=== PATIENT | male | born 1990 | race Hispanic/Latino ===

== ENCOUNTER 2018-01-13 16:18 | Inpatient (IN) | payer SELFPAY ==
[2018-01-13] MEDS ORDERED: Lidocaine 1% w/Epinephrine 1:100K 20 ML VIAL ONE (17:19)
[2018-01-13] MEDS ORDERED: Multivitamins, Adult 10 ML, Thiamine HCl 100 MG, Folic Acid 1 MG in Dextrose 5 %-0.45 %... IV SCH (17:45)
[2018-01-13] MEDS ORDERED: Lorazepam 2 MG/ML VIAL ONE (18:03)
[2018-01-13 18:11] LABS: #Basophils 0.1 thou/uL (0.0-0.2); #Eosinphils 0.1 thou/uL (0.0-0.7); #Lymphocytes 1.7 thou/uL (1.20-3.40); #Monocytes 0.6 thou/uL (0.11-0.59); #Neutrophils 8.4 thou/uL (1.40-6.50); %Basophils 0.6 % (0.0-1.0); %Eosinophils 0.9 % (0.0-10.0); %Lymphocytes 15.6 % (21.0-51.0); %Monocytes 5.5 % (0.0-10.0); %Neutrophils 77.4 % (42.0-75.0); Hemoglobin 11.9 g/dL (14.0-18.0); Mean Corpuscular HGB CONC 33.8 g/dL (32.0-36.0); Mean Corpuscular Hemoglobin 35.4 pg (27.0-31.0); Mean Platelet Volume 8.9 fL (7.4-10.4); Platelet Count 105 thou/uL (130-400); RBC Distribution Width 15.4 % (11.5-14.5); Red Blood Cell (RBC) Count 3.37 mill/uL (4.70-6.10); White Blood Cell (WBC) Count 10.8 thou/uL (4.8-10.8)
[2018-01-13 18:15] LABS: INR-International Normal Ratio 1.6; PTT 46.8 SEC (22.9-36.1); Prothrombin Time 19.2 SEC (12.0-14.7)
[2018-01-13 18:32] LABS: Acetaminophen Less than 6.0 mcg/mL (10.0-30.0); Alcohol Less than 10 mg/dL (Less than 10); Salicylate Less than 8.0 mg/dL (15.0-30.0)
[2018-01-13 18:36] LABS: CKMB 1.6 ng/mL (0-6.6); Troponin I Less than 0.010 ng/mL (< 0.028)
[2018-01-13 18:44] LABS: ALT (SGPT) 66 U/L (8-55); AST (SGOT) 203 U/L (5-34); Albumin 3.3 g/dL (3.5-5.0); Alkaline Phosphatase 140 U/L (40-150); Anion Gap 13 mmol/L (10-20); BUN (Urea Nitrogen) 8 mg/dL (8.9-20.6); Bilirubin, Total 12.2 mg/dL (0.2-1.2); Calc. Creatinine Clearance 0 mL/min (70-130); Calcium 9.6 mg/dL (7.8-10.44); Carbon Dioxide 26 mmol/L (22-29); Chloride 97 mmol/L (98-107); Estimated GFR-MDRD Greater than 90; Globulin 5.3 g/dL (2.4-3.5); Glucose 119 mg/dL (70-105); Lipase 150 U/L (8-78); Potassium 3.8 mmol/L (3.5-5.1); Protein, Total 8.6 g/dL (6.0-8.3); Sodium 132 mmol/L (136-145)
[2018-01-13 19:10] LABS: Bilirubin Large (Negative); Blood, Urine Negative (Negative); Clarity CLOUDY (Clear); Glucose, Urine (Dipstick) Negative (Negative); Leukocyte Moderate (Negative); Nitrite Positive (Negative); Protein, Urine (Dipstick) 30 mg/dL (Neg-Trace); Specific Gravity, Urine 1.023 (1.002-1.036)
[2018-01-13 19:12] LABS: RBC/HPF 0-3 HPF (0-3); Squamous Epithelial 0-3 HPF (0-3)
[2018-01-13 19:15] LABS: Pathc Cast-AUWi Flag 2.57 (0-2.49)
[2018-01-13 19:17] LABS: Bacteria/HPF 1+ HPF (None Seen); Crystals/HPF None Seen HPF (Negative); Hyaline Casts/LPF 0-3 HYALINE CAST LPF (0-3 Hyaline); Manual Microscopic Reviewed? No Path Casts Seen
[2018-01-13 19:30] LABS: Amphetamine Not Detected (NotDetected); Barbiturates Screen Not Detected (NotDetected); Benzodiazepine Screen Detected (NotDetected); Cocaine Metabolite Screen Not Detected (NotDetected); Medtox Control Line Valid? VALID (VALID); Medtox Reader # READER 4; Methadone Not Detected (NotDetected); Methamphetamine Detected (NotDetected); Opiate Screen Not Detected (NotDetected); Oxycodone Screen Not Detected (NotDetected); Phencyclidine (PCP) Not Detected (NotDetected); THC/Cannabinoid Screen Detected (NotDetected); Tricyclic Screen Not Detected (NotDetected)
[2018-01-13] MEDS ORDERED: Magnesium Sulfate 2 GM/100 ML BAG ONE (19:35)
[2018-01-13] MEDS ORDERED: WATER IVPB ONE (19:45)
[2018-01-13] MEDS ORDERED: ACETYLCYSTEINE IVPB ONE (19:45)
[2018-01-13] MEDS ORDERED: DEXTROSE 5% IVPB ONE (19:45)
[2018-01-13] MEDS ORDERED: DEXTROSE 5% IVPB SCH (21:30)
[2018-01-13] MEDS ORDERED: ACETYLCYSTEINE IVPB SCH (21:30)
[2018-01-13] MEDS ORDERED: WATER IVPB SCH (21:30)
[2018-01-13] MEDS ORDERED: cefTRIAXone\\ROCEPHIN 1 GM in Sodium Chloride 0.9% 100 ML IVPB SCH (21:45)
[2018-01-13] MEDS ORDERED: Lorazepam 2 MG/ML VIAL SLOW IVP PRN (22:23)
[2018-01-13] MEDS: cefTRIAXone\\ROCEPHIN 1 GM, Syringe 0.4 ML in Sterile Water 9.6 ML SLOW IVP SCH (22:26)
[2018-01-13] MEDS ORDERED: Sodium Chloride 0.9% 1,000 ML IV SCH (22:30)
[2018-01-13 23:14] VITALS: BMI 32.8
--- NOTE | 2018-01-13 23:22 | PDOC.FPRHP ---
- History of Present Illness Chief Complaint: Bleeding from facial abrasion History of Present Illness: 27 yo M with a hx of alcoholism, multi drug abuse, and depression/anxiety presented to urgent care clinic complaining of a laceration on his right upper lip that would not stop bleeding. At the the lac was repaired with suture and pressure was applied, however the would would not stop bleeding. It was also noticed that the patient had significant scleral icterus. Upon arrival at the ED a CMP found significant elevation of his AST, ALT, total abdulkadir, and PT/ INR. DT concern for acute alcoholic hepatitis pt was given steroids, a banana bag, and NAC. Concerning etoh use, pt has been drinking heavily for apprx 10 years. He typically drinks 3-4 750 mL bottles of liquor per week. He states that his last drink was 3 days ago. He denies seizure in the past when he has gone as long as 2 weeks without drinking. He claims that he had decided that he needed to quit drinking within the past 2 days and was going to start AA meetings. He denies use tobacco or recreational drugs. He states that he has been feeling sick and nauseous for the past 24 hours. His mother noted yellowing of his eyes for the past few days. - Allergies/Adverse Reactions Allergies Allergy/AdvReac Type Severity Reaction Status Date / Time No Known Allergies Allergy Verified 01/13/18 22:58 - Home Medications Medication Instructions Recorded Confirmed Type ALPRAZolam [Xanax] 0.5 mg PO TID PRN 01/13/18 01/13/18 History Sertraline HCl 50 mg PO HS 01/13/18 01/13/18 History - History PMHx: MDD Anxiety PSHx: None FHx: Maternal DM. Social: 3-4 750 mL bottles of liquor/week for 10 years Denies tobacco or drug use - Review of Systems General: denies: fever/chills, weight/appetite/sleep changes Eyes: denies: eye pain, vision changes ENT: denies: nasal congestion, rhinorrhea Respiratory: denies: cough, congestion, shortness of breath Cardiovascular: denies: chest pain, edema Gastrointestinal: reports: nausea, vomiting. denies: diarrhea, constipation, abdominal pain, GI bleeding Genitourinary: denies: incontinence, dysuria Skin: reports: jaundice. denies: rashes, lesions Musculoskeletal: denies: pain, tenderness Neurological: denies: numbness, syncope, seizure Psychological: reports: anxiety, depression - Vital signs BP: 144/84 HR: 113 RR: 16 Tmax: 99.4 Pox: 100% on RA Wt: 95 kg - Physical Exam Constitutional: NAD, awake, alert and oriented HEENT: normocephalic and atraumatic, PERRLA, EOMI -HEENT: Significant scleral icterus Neck: supple, FROM Chest: no-tender to palpation Heart: normal S1/S2, no murmurs/rubs/gallops, pulses present, no edema -Heart: Tacycardia. Lungs: CTAB, no respiratory distress Abdomen: soft, non-tender, bowel sounds present -Abdomen: Palpable liver edge ~3 cm below liver edge Musculoskeletal: normal structure Neurological: no focal deficit, CN II-XII intact Skin: good turgor -Skin: Skin jaundiced Heme/Lymphatic: no purpura, no petechia -Heme/Lymphatic: Lesion on right side of face repaired, continues to ooze Psychiatric: normal mood and affect, intact recent and remote memory FMR H&P: Results - Labs Result Diagrams: 01/13/18 17:53 01/13/18 17:53 Lab results: WBC 10.8 thou/uL (4.8-10.8) 01/13/18 17:53 Hgb 11.9 g/dL (14.0-18.0) L 01/13/18 17:53 Hct 35.3 % (42.0-52.0) L 01/13/18 17:53 MCV 105.0 fl (80.0-94.0) H 01/13/18 17:53 Plt Count 105 thou/uL (130-400) L 01/13/18 17:53 Neutrophils % 77.4 % (42.0-75.0) H 01/13/18 17:53 Sodium 132 mmol/L (136-145) L 01/13/18 17:53 Potassium 3.8 mmol/L (3.5-5.1) 01/13/18 17:53 Chloride 97 mmol/L (98-107) L 01/13/18 17:53 Carbon Dioxide 26 mmol/L (22-29) 01/13/18 17:53 BUN 8 mg/dL (8.9-20.6) L 01/13/18 17:53 Creatinine 0.60 mg/dL (0.6-1.3) 01/13/18 17:53 Glucose 119 mg/dL (70-105) H 01/13/18 17:53 Calcium 9.6 mg/dL (7.8-10.44) 01/13/18 17:53 Total Bilirubin 12.2 mg/dL (0.2-1.2) H 01/13/18 17:53 AST 203 U/L (5-34) H 01/13/18 17:53 ALT 66 U/L (8-55) H 01/13/18 17:53 Alkaline Phosphatase 140 U/L (40-150) 01/13/18 17:53 CK-MB (CK-2) 1.6 ng/mL (0-6.6) 01/13/18 17:53 Serum Total Protein 8.6 g/dL (6.0-8.3) H 01/13/18 17:53 Albumin 3.3 g/dL (3.5-5.0) L 01/13/18 17:53 Lipase 150 U/L (8-78) H 01/13/18 17:53 Urine Ketones 15 mg/dL (Negative) H 01/13/18 18:52 Urine Blood Negative (Negative) 01/13/18 18:52 Urine Nitrite Positive (Negative) H 01/13/18 18:52 Ur Leukocyte Esterase Moderate (Negative) H 01/13/18 18:52 Urine RBC 0-3 HPF (0-3) 01/13/18 18:52 Urine WBC 4-6 HPF (0-3) H 01/13/18 18:52 Ur Squamous Epith Cells 0-3 HPF (0-3) 01/13/18 18:52 Urine Bacteria 1+ HPF (None Seen) H 01/13/18 18:52 - EKG Interpretation EKG: Sinus tachycardia 120s, no ST changes. FMR H&P: A/P - Problem List (1) Acute alcoholic hepatitis Current Visit: Yes Status: Acute Priority: High Code(s): K70.10 - ALCOHOLIC HEPATITIS WITHOUT ASCITES (2) UTI (urinary tract infection) Current Visit: Yes Status: Acute Priority: Medium (3) Alcohol dependence Current Visit: Yes Status: Chronic Priority: High Code(s): F10.20 - ALCOHOL DEPENDENCE, UNCOMPLICATED Qualifiers: Substance use status: in withdrawal Complication of substance-induced condition: uncomplicated Qualified Code(s): F10.230 - Alcohol dependence with withdrawal, uncomplicated (4) Polysubstance abuse Current Visit: Yes Status: Chronic Priority: Medium Code(s): F19.10 - OTHER PSYCHOACTIVE SUBSTANCE ABUSE, UNCOMPLICATED (5) Macrocytic anemia Current Visit: Yes Status: Chronic Priority: Low Code(s): D53.9 - NUTRITIONAL ANEMIA, UNSPECIFIED (6) Thrombocytopenia Current Visit: Yes Status: Chronic Priority: Low Code(s): D69.6 - THROMBOCYTOPENIA, UNSPECIFIED (7) Coagulopathy Current Visit: Yes Status: Acute Priority: Medium (8) Hyperbilirubinemia Current Visit: Yes Status: Acute Code(s): E80.6 - OTHER DISORDERS OF BILIRUBIN METABOLISM (9) Transaminitis Current Visit: Yes Status: Acute Code(s): R74.0 - NONSPEC ELEV OF LEVELS OF TRANSAMNS & LACTIC ACID DEHYDRGNSE - Plan Acute alcoholic hepatitis - Hepatitis discriminate function score 45 - Admit to IMCU - Continue PO glucocorticoids - Continue NAC for 21 hour course - CMP/CBC in am - monitor for signs of SBP - Viral hepatitis panel, HIV, RPR - IVF at maintenance rate - RUQ US UTI, complicated - IV Rocephin - urine Cx pending - monitor cbc as above Alcohol dependence, in withdrawal - ASE protocol. 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 Asymptomatic - Monitor CBC Thrombocytopenia - 2/2 decreased liver fxn - monitor cbc Coagulopathy - 2/2 decreased liver fxn - monitor for signs of bleeding - consider vitamin K if pt bleeds Transaminitis - 2/2 hepatitis - monitor LFT Hyperbilirubinemia - 2/2 acute hepatitis - monitor as above Polysubstance abuse - case management as above DVT PPx - SCD Diet: regular FMR H&P: Upper Level - Pertinent history 27 yo HM with hx of EtOH abuse presenting from urgent care after facial wound was oozing and scleral jaundice was noted. Pt notes drinking 1/5th liquor every other day. No previous history of seizures/DTs or hospitalizations for withdrawals. - Pertinent findings General: NAD, well nourished HEENT: scleral jaundice. right facial wound covered by dressing. CV: sinus tachycardia, no murmurs/rubs/gallops, radial pulses equal bilaterally Resp: breathing even and unlabored, CTAB Abdomen: +BS, soft, mild voluntary guarding that is distractible, liver edge palpable 3 cm below right costal margin, no rebound, no rigidity, no fluid wave Neuro: CGS 15, negative asterixis but tremulous Skin: jaundice - Plan Date/Time: 01/13/18 2314 I, Brennan Avilez MD, have evaluated this patient and agree with findings/plan as outlined by internet marketing executive resident. Pertinent changes/additions are listed here. 1. Alcohol withdrawal with concern for possible DTs -Patient admits to drinking a 1/5th of liquor every other day since the age of 17. He has begun feeling unwell over the past few days and notes last alcoholic drink was 3 days ago. He endorses nausea, vomiting, tremors, palpitations, sweats, itching and, on exam, has a CIWA score of 13. Serum EtOH level negative , ruling out acute intoxication. -Plan to admit to IMCU for close monitoring. Start ASE protocol with scheduled Ativan PO. 2. Elevated LFTs likely secondary to alcoholic hepatitis -Discriminant function score of 40 indicating may benefit from steroid administration. MELD-Na score of 25. AST/ALT ratio favors alcohol as cause. -Patient has already received banana bag. Start oral thiamine, folate, and multivitamin. -IVF and protonix -Trend LFTs -RUQ US -Hepatitis panel, HIV, RPR -Likely consult GI in AM 3. UTI -Urine culture ordered -Start patient on ceftriaxone 4. Conjugated hyperbilirubinemia likely secondary to #2 -Per above 5. Coagulopathy with elevated INR secondary to #2 6. Mild thrombocytopenia secondary to #2 7. Macrocytic anemia secondary to #2 -Continue to monitor with IVF resuscitation. Patients tachycardia likely explained by #1. -B12 and RBC folate 8. Hypomagnesemia -Replete and recheck in AM. 9. Possible polysubstance abuse -children counselor cessation 10. PPx -Protonix and SCDs Disposition: Admit to inpatient service for anticipated length of stay greater than 2 midnights.
[2018-01-14 00:33] LABS: Syphilis Antibody Nonreactive (Nonreactive); Syphilis Antibody Index 0.06 S/CO (<1.00 Non-Reactive)
--- NOTE | 2018-01-14 00:43 | HP ---
DATE OF ADMISSION: 01/13/2018 For full history and physical details, please see Dr. Brennan Vila's dictated H and P. Portions of the history and physical have been repeated by myself and I am in agreement with the assessment and plan as documented in his note. In brief, this patient is a 27-year-old male with a history of hypertension that has not been treated for a while as well as long-term alcohol abuse who presents to the emergency room with a lip laceration. The patient was originally seen at an Urgent Care for lip laceration and was transferred to the emergency room here for more complex suturing. However, upon arrival here, it was noted by the ER physician that the patient appeared to be jaundiced and was tremulous and tachycardic. Upon further questioning, it was determined that the patient has a longstanding alcohol history with his last drink being approximately 3 days ago. The patient endorses that he drinks about three 1.75 L bottles of codey weekly and he has been doing this for many years. He reports that he has never been in DTs and has never been admitted to the hospital for alcohol withdrawals. However, he does endorse after a day or so of not drinking, that he does experience palpitations and jitteriness. The patient otherwise reports he has been feeling fine recently other than an isolated episode of nausea a few days ago. Per the patient's mom who is in the room with him, she endorses that he has not been himself for "quite some time." She also endorses that over the last 1 week or so, he has not had a good appetite and has not been acting his usual self. She endorses poor p.o. intake during this period and also endorses that she has noticed his eyes being yellow for about the last 1 week. The patient otherwise denies any headaches, fevers, chills, nausea, vomiting, abdominal pain, lower extremity edema. PHYSICAL EXAMINATION: VITAL SIGNS: Showed afebrile patient, he was tachycardic to the 130s, blood pressure was in the 140s to 150s systolic. He does not appear tachypneic and had normal oxygen saturation. GENERAL: He is an obese appearing young male with obvious jaundice who appeared in no distress. HEENT: Head exam did reveal scleral icterus. The patient also had a small laceration on his lip that was covered with a bandage with some dried blood evident. Oral mucosa was also yellowed. CARDIOVASCULAR: Elevated rate, but regular rhythm. Pulses were 2+ bilaterally. RESPIRATORY: Clear bilaterally to auscultation. ABDOMEN: Soft, nondistended. The patient did have some mild tenderness diffusely that was more focal over the liver margin. The patient was noted to have hepatomegaly that extended several centimeters below the costal margin. Abdominal exam otherwise benign. EXTREMITIES: There was no clubbing, cyanosis or edema. Cap refill normal. NEUROLOGIC: Motor and sensory grossly intact. The patient was noted to be hyperreflexic, 3+ bilaterally. No clonus evident. Negative asterixis. The patient was noted to be tremulous during my exam. LABORATORY DATA: 1. CBC: WBC is 10.8, H and H 11.9 and 35.3, platelets 105, 77% neutrophils. 2. CMP showed a sodium 132, potassium 3.8, chloride 97, bicarbonate 26, BUN 8, creatinine 0.60, glucose 119, total bilirubin 12.2 with a direct bilirubin of 8.2, AST and ALT were 203 and 66, alkaline phosphatase 140, albumin 3.3. 3. Calcium 9.6. 4. Magnesium 1.0. 5. Lipase 150. 6. Troponins were less than 0.010. 7. Urinalysis showed a 30 urine protein with elevated urine ketones. The patient was positive for nitrites as well as large bilirubin. Has moderate leukocyte esterase, 4-6 wbc's, 1+ bacteria on microscopy. 8. Toxicology. Urine drug screen positive for methamphetamines as well as benzodiazepines and cannabinoids. Alcohol level was less than 10. Acetaminophen level less than 6. ASSESSMENT AND PLAN: This patient is a 27-year-old male with a history of heavy alcohol abuse as well as untreated hypertension, is presenting with worsening jaundice and elevated liver enzymes, suspicious for possible alcoholic hepatitis. 2. Hepatitis, likely alcohol related. This patient has longstanding history of alcohol abuse and review of his labs from previous ER visits does show chronic elevation in his AST and ALT as well as his total bilirubin level as far back as 03/2017. At that time, his total bilirubin level is 4, but no further workup was performed at that time. The patient does have tenderness over his liver margin as well as his increasing levels associated with elevated bilirubin suggesting some degree of liver dysfunction. To ensure this is not a viral mediated process, we will check an acute hepatitis panel and screen for hepatitis B and C. He will need vaccines for these viruses if he has not received them already. Right upper quadrant ultrasound will be obtained during this hospitalization to rule out obstructive or masslike cause of his hyperbiliruinemia, though less likely. 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 The patient has also been started in the emergency room on N-acetylcysteine. Studies seem to be equivocal, so we will continue that as there is a low incidence of adverse effect and could offer him some benefit in his long-term survival. GI will be consulted in the morning. We will check an ammonia level. There does not appear to be any evidence of encephalopathy at this time. The patient has been given a banana bag in the emergency room. He will be continued on normal saline after that time as well as daily multivitamins. MELD score calculated is 24, which does indicate a greater than 30% 90-day mortality rate. I have counseled the patient extensively during my visit with him that he is to refrain from alcohol if he desires a longer life. 3. Coagulopathy. This is likely secondary to his alcoholic hepatitis and loss of synthetic function. These will be trended. He currently does not have any active bleeding and no indication for FFP therapy. No evidence for DIC. 4. Alcohol withdrawal. The patient is noted to be in mild to moderate withdrawal at this time due to his tachycardia and tremulousness and hyperreflexic state. The patient placed on ASE protocol as well as admitted to the IMCU for more intensive monitoring. He will be started on baseline benzodiazepine therapy for his withdrawals. He will need counseling during hospitalization to see if he is interested in total abstinence from alcohol, at which time, we can consider starting him on a taper of some sort in the outpatient setting. 5. Possible urinary tract infection. The patient's urinalysis is consistent with that. This will be complicated urinary tract infection since he is a male patient. The patient was started on Rocephin and we will wait for culture. 6. Thrombocytopenia, likely secondary to hepatitis. 7. Hyponatremia. He does have a mild degree of hyponatremia 132, likely secondary to his liver dysfunction. Is not low enough at this point that it would cause a severely negative prognostication. We will continue to trend. 8. Gastrointestinal prophylaxis, Protonix. This patient will be on steroids, and with his severe hepatitis may have a degree of gastropathy related to his liver dysfunction. 9. Polysubstance abuse. The patient tested positive for marijuana as well as methamphetamines on drug screen that he does deny. Further indication for checking a hepatitis panel as well as human immunodeficiency virus. Counseling during hospitalization. MILO
[2018-01-14 02:01] LABS: HBSAg Index 0.19 S/CO (0-0.99); HIV (1/2) Antibody/Antigen Non-Reactive (NonReactive); HIV 1/2 INDEX 0.29 S/CO (<1.00); Hep A IgM AB Non-Reactive (NonReactive); Hep B Surf Ag Non-Reactive S/CO (NonReactive); Hep C IgG Ab Non-Reactive (NonReactive); Hep C Index 0.21 S/CO (0-0.79); Hepatitis B Core IGM Abs Non-Reactive (NonReactive)
[2018-01-14] MEDS: Sodium Chloride 0.9% 1,000 ML IV SCH ×5 (02:28→23:00)
[2018-01-14] MEDS ORDERED: DEXTROSE 5% IVPB ONE (02:30)
[2018-01-14] MEDS ORDERED: ACETYLCYSTEINE IVPB ONE (02:30)
[2018-01-14] MEDS ORDERED: WATER IVPB ONE (02:30)
[2018-01-14] MEDS: Lorazepam 1 MG TAB PO SCH ×4 (04:43→21:30)
[2018-01-14 05:03] LABS: #Basophils 0.1 thou/uL (0.0-0.2); #Eosinphils 0.1 thou/uL (0.0-0.7); #Lymphocytes 1.9 thou/uL (1.20-3.40); #Monocytes 0.9 thou/uL (0.11-0.59); #Neutrophils 5.2 thou/uL (1.40-6.50); %Eosinophils 1.3 % (0.0-10.0); %Lymphocytes 22.9 % (21.0-51.0); %Monocytes 11.3 % (0.0-10.0); %Neutrophils 63.5 % (42.0-75.0); Hemoglobin 10.9 g/dL (14.0-18.0); Mean Corpuscular HGB CONC 33.5 g/dL (32.0-36.0); Mean Corpuscular Hemoglobin 36.1 pg (27.0-31.0); Mean Platelet Volume 9.5 fL (7.4-10.4); PLT Morphology Comment Appears Decreased; Platelet Count 84 thou/uL (130-400); RBC Distribution Width 15.4 % (11.5-14.5); Red Blood Cell (RBC) Count 3.02 mill/uL (4.70-6.10); White Blood Cell (WBC) Count 8.2 thou/uL (4.8-10.8)
[2018-01-14 05:15] LABS: ALT (SGPT) 54 U/L (8-55); AST (SGOT) 149 U/L (5-34); Albumin 2.8 g/dL (3.5-5.0); Alkaline Phosphatase 89 U/L (40-150); Anion Gap 9 mmol/L (10-20); BUN (Urea Nitrogen) 6 mg/dL (8.9-20.6); Bilirubin, Total 10.3 mg/dL (0.2-1.2); Calc. Creatinine Clearance 253 mL/min (70-130); Calcium 8.8 mg/dL (7.8-10.44); Carbon Dioxide 29 mmol/L (22-29); Chloride 98 mmol/L (98-107); Estimated GFR-MDRD Greater than 90; Globulin 4.4 g/dL (2.4-3.5); Glucose 115 mg/dL (70-105); Magnesium 1.3 mg/dL (1.6-2.6); Potassium 3.1 mmol/L (3.5-5.1); Protein, Total 7.2 g/dL (6.0-8.3); Sodium 133 mmol/L (136-145)
--- NOTE | 2018-01-14 05:49 | PDOC.FM ---
- Subjective Subjective: Patient is doing well this morning. Denies abdominal pain, N/V, anxiety, and tremulousness. Patient reports he wants to get help for his drinking and knows this is a problem. - Objective MAR Reviewed: Yes Vital Signs & Weight: Vital Signs (12 hours) Temp Pulse Resp BP Pulse Ox 01/14/18 04:09 98.8 F 120 H 20 125/81 98 01/14/18 02:00 120 H 18 109/62 99 01/14/18 00:04 99.2 F 142 H 19 111/70 100 01/13/18 22:15 100.5 F H 133 H 18 127/81 99 Weight Weight 95.056 kg I&O: 01/12/18 01/13/18 01/14/18 06:59 06:59 06:59 Output Total 450 Balance -450 Result Diagrams: 01/14/18 03:42 01/14/18 03:42 <Dory Aguilar - Last Filed: 01/14/18 10:38> - Objective Vital Signs & Weight: Vital Signs (12 hours) Temp Pulse Resp BP Pulse Ox 01/14/18 08:00 99.0 F 136 H 16 99 01/14/18 07:15 99.0 F 136 H 16 108/62 100 01/14/18 04:09 98.8 F 120 H 20 125/81 98 01/14/18 02:00 120 H 18 109/62 99 01/14/18 00:04 99.2 F 142 H 19 111/70 100 Weight Weight 95.056 kg I&O: 01/13/18 01/14/18 01/15/18 06:59 06:59 06:59 Intake Total 2310 Output Total 450 Balance 1860 Result Diagrams: 01/14/18 03:42 01/14/18 03:42 <Kirill Bennett - Last Filed: 01/14/18 11:10> Phys Exam - Physical Examination Constitutional: NAD HEENT: PERRLA, moist MMs, oral pharynx no lesions scleral icterus, bandage in place along right cheek Neck: no nodes Respiratory: no wheezing, no rales, clear to auscultation bilateral Cardiovascular: RRR, no significant murmur Gastrointestinal: soft, non-tender, positive bowel sounds Some guarding when palpating liver edge with mild tenderness Musculoskeletal: no edema, pulses present Neurological: non-focal, moves all 4 limbs Psychiatric: normal affect, A&O x 3 Skin: cap refill <2 seconds <Dory Aguilar - Last Filed: 01/14/18 10:38> Dx/Plan (1) Acute alcoholic hepatitis Code(s): K70.10 - ALCOHOLIC HEPATITIS WITHOUT ASCITES Status: Acute (2) Coagulopathy Status: Acute (3) Hyperbilirubinemia Code(s): E80.6 - OTHER DISORDERS OF BILIRUBIN METABOLISM Status: Acute (4) Transaminitis Code(s): R74.0 - NONSPEC ELEV OF LEVELS OF TRANSAMNS & LACTIC ACID DEHYDRGNSE Status: Acute (5) UTI (urinary tract infection) Status: Acute (6) Alcohol dependence Code(s): F10.20 - ALCOHOL DEPENDENCE, UNCOMPLICATED Status: Chronic QualifierTitle: Substance use status: in withdrawal Complication of substance-induced condition: uncomplicated Qualified Code(s): F10.230 - Alcohol dependence with withdrawal, uncomplicated (7) Macrocytic anemia Code(s): D53.9 - NUTRITIONAL ANEMIA, UNSPECIFIED Status: Chronic (8) Polysubstance abuse Code(s): F19.10 - OTHER PSYCHOACTIVE SUBSTANCE ABUSE, UNCOMPLICATED Status: Chronic (9) Thrombocytopenia Code(s): D69.6 - THROMBOCYTOPENIA, UNSPECIFIED Status: Chronic - Plan Plan: 1. Alcohol withdrawal with concern for possible DTs -Patient with significant alcohol hx, on day 4 of abstaining from alcohol intake , initial CIWA 13, today CIWA 2 -Continue ASE protocol with scheduled Ativan PO q6h, last ASE scores of 4 and 6. Consider spacing Ativan to q8h. -Patient fevered overnight, could possibly d/t alcohol withdrawal or infectious source. Continue to monitor and draw blood cultures if fever > 101 2. Elevated LFTs likely secondary to alcoholic hepatitis -Discriminant function score of 40 initally and 46 today. Patient on steroids. MELD-Na score of 25. AST/ALT ratio favors alcohol as cause but with elevated direct bilirubin, consider other obstructive causes, RUQ to evaluate. -oral thiamine, folate, and multivitamin. -IVF and protonix -LFTs downtrending -Coags slightly uptrending, repeat tomorrow -RUQ US pending -Hepatitis panel, HIV, RPR wnl -Consult GI 3. UTI -Urine culture pending -Continue ceftriaxone 4. Conjugated hyperbilirubinemia likely secondary to #2 -Per above 5. Coagulopathy with elevated INR secondary to #2 6. Mild thrombocytopenia secondary to #2 7. Macrocytic anemia secondary to #2 -Continue to monitor with IVF resuscitation. Patients tachycardia likely explained by #1. -B12 and RBC folate 8. Hypomagnesemia -Continues to be low, replace 9. Hypokalemia -replace and recheck tomorrow 9. Possible polysubstance abuse -genetic counselor cessation -CM for resources for rehab 10. PPx -Protonix and SCDs Dispo: Transition to medical today. Continue following labs until normalized. Likely d/c once acute hepatitis resolved. <Dory Aguilar - Last Filed: 01/14/18 10:38> Attending Addendum - Attending Addendum Date/Time: 01/14/18 110 I personally evaluated the patient and discussed the management with Dr. Aguilar. I agree with the History, Examination, Assessment and Plan documented above with any addition or exceptions noted below. Patient reports no issues overnight. His labs are somewhat improved, but MELD score and DF score somewhat worse today. Continues on NAC per ER and steroids. GI consult this morning. Maximize nutrition. ASE scores have been ok with lorazepam treatment. Awaiting RUQ U/S. Continues to be tachycardic, may benefit from another fluid bolus. <Kirill Bennett - Last Filed: 01/14/18 11:10>
[2018-01-14] MEDS ORDERED: Potassium Chloride 40 MEQ in Sodium Chloride 0.9% 250 ML 250 ML IVPB PRN (05:57)
[2018-01-14] MEDS ORDERED: Magnesium Oxide 400 MG TAB PO PRN ×2 (05:57)
[2018-01-14] MEDS ORDERED: Magnesium 2 GM/NS 0.9% 100 ML 2 GM in Premix Bag 1 BAG IVPB PRN (05:57)
[2018-01-14] MEDS ORDERED: Potassium Chloride 40 MEQ in Premix Bag 1 BAG IVPB PRN (05:57)
[2018-01-14] MEDS ORDERED: Potassium Phosphate 12 MMOL in Sodium Chloride 0.9% 250 ML 250 ML IV PRN (05:57)
[2018-01-14] MEDS ORDERED: Potassium Phosphate 9 MMOL in Sodium Chloride 0.9% 100 ML IVPB PRN (05:57)
[2018-01-14] MEDS ORDERED: CCU ELECTROLYTE REPLACEMENT PROTOCOL FS PRN (05:57)
[2018-01-14] MEDS ORDERED: Potassium Chloride 20 MEQ TAB PO PRN (05:57)
[2018-01-14] MEDS ORDERED: Potassium Phosphate 15 MMOL in Sodium Chloride 0.9% 250 ML 250 ML IV PRN (05:57)
[2018-01-14] MEDS ORDERED: CCU Electrolyte Replacement 1 EACH FS SCH (06:00)
[2018-01-14] MEDS ORDERED: Sodium Chloride 0.9% 1,000 ML IV SCH (06:15)
[2018-01-14 07:00] LABS: INR-International Normal Ratio 1.7; PTT 53.5 SEC (22.9-36.1); Prothrombin Time 20.9 SEC (12.0-14.7)
[2018-01-14] MEDS: predniSONE 20 MG TAB PO SCH (10:06)
[2018-01-14] MEDS: Magnesium Oxide 400 MG TAB PO SCH (10:06)
[2018-01-14] MEDS: Multivitamin W/ Minerals 1 TAB PO SCH (10:07)
[2018-01-14] MEDS: Folic Acid 1 MG TAB PO SCH (10:07)
--- NOTE | 2018-01-14 16:37 | ULT ---
ULTRASOUND ABDOMEN LIMITED: (RIGHT UPPER QUADRANT) DATE: 01/14/18 TIME: 3:11 p.m. HISTORY: 27-year-old male with history of ethanol abuse presents with hepatitis. FINDINGS: Gallbladder: Distended. Filled with a large volume of sludge. No definite gallstone identified. Tiny amount of fluid adjacent to the gallbladder wall. Gallbladder wall thickness 3 mm, within normal limi ts. No sonographic Herring's sign. Common duct: 4 mm. Liver: Diffusely mildly increased echogenicity, suggestive of either fatty liver or cirrhosis. Questi onable mildly nodular margins. Pancreas: Poorly visualized. Right kidney: Poorly visualized. No hydronephrosis. IMPRESSION: 1. Poor visualization of intra-abdominal structures due to body habitus. 2. Distended gallbladder containing a large volume of sludge. 3. Tiny amount of pericholecystic fluid. This is questionable for a tiny amount of ascites. It m ay or may not be originating from gallbladder pathology. 4. Abnormal liver, either cirrhosis or hepatic steatosis. CECE Wiggins POS: LUPE
[2018-01-14] MEDS ORDERED: Diazepam 5 MG TAB PO SCH (18:00)
[2018-01-14] MEDS: cefTRIAXone\\ROCEPHIN 1 GM, Syringe 0.4 ML in Sterile Water 9.6 ML SLOW IVP SCH (21:31)
[2018-01-14] MEDS ORDERED: Potassium Chloride 20 MEQ TAB PO SCH (22:30)
[2018-01-14] MEDS ORDERED: Magnesium Sulfate 4 GM in Sodium Chloride 0.9% 250 ML 250 ML IVPB SCH (23:00)
--- NOTE | 2018-01-15 00:17 | CON ---
DATE OF SERVICE: 01/14/2018 SERVICE: Pulmonary Medicine. REASON FOR CONSULTATION: [facility] patient. HISTORY OF PRESENT ILLNESS: The patient is a 27-year-old male with past medical history significant for longstanding history of alcohol abuse. He presented to the emergency department with complaints of the lacerated lip. He also had icterus. As such, his primary care physician ordered liver function studies which demonstrated abnormalities. He denies any current fevers, chills , nausea or vomiting. He had no infectious profile. Because of possible alcoholic hepatitis, he was tucked into the [facility]. He demonstrated stability there and was subsequently transitioned to the floor. He also screens a weakly positive for obstructive sleep apnea. He has never been evaluated. PAST MEDICAL HISTORY: 1. Major depressive disorder. 2. Anxiety disorder. 3. Alcohol abuse. PAST SURGICAL HISTORY: None. SOCIAL HISTORY: Positive for 2 liters of liquor per week for an extended period of time. He denies any alcohol or illicit drug use. He has no exposure to chemicals, dust asbestos or tuberculosis. ALLERGIES: No known drug allergies. MEDICATIONS: List of his inpatient medications were reviewed. No specific updates were made at this time. REVIEW OF SYSTEMS: Including general, head, ears, eyes, nose, throat, cardiovascular, respiratory, GI, , musculoskeletal, neurologic and skin is negative except as mentioned in the HPI. PHYSICAL EXAMINATION: VITAL SIGNS: Afebrile, pulse 117, blood pressure 138/89, respirations 20, saturation 96% on room air. GENERAL: The patient is awake, alert, no apparent distress. LUNGS: Decent air entry. There is no prolonged expiratory phase, wheezing, rhonchi or crackles. HEART: Normal rate, regular. ABDOMEN: Soft, nontender, nondistended. Bowel sounds are positive. MUSCULOSKELETAL: No cyanosis or clubbing. No pitting in the bilateral lower extremities. NEUROLOGIC: Grossly nonfocal. LABORATORY DATA: WBC 8.2, hemoglobin 10.9, platelets 84,000. Neutrophil count is 63.5%. INR 1.7. Sodium 133, potassium 3.1. Total bilirubin 10.3, magnesium 1.3. AST and ALT are marginally elevated. Ammonia 55. Troponin below assay limit of normal. Urinalysis is positive for nitrites and leukocyte esterase, but there a very few white blood cells present. Tox screen is positive for methamphetamine, benzodiazepine, and cannabinoids. Salicylate, acetaminophen and alcohol are all unremarkable. Hepatitis serologies are all nonreactive. Syphilis is also nonreactive. Urine cultures negative. IMAGING: Ultrasound of the abdomen demonstrates poor visualization of the intra -abdominal structures. Distended gallbladder contains a large amount of sludge. Small amount of pericholecystic fluid. Liver has cirrhotic morphology. ASSESSMENT: 1. Alcohol abuse. 2. Polysubstance drug abuse. 3. 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 4. Alcoholic hepatitis. 5. Obstructive sleep apnea, possible. DISCUSSION AND PLAN: Replace his potassium. We will send off an AFP for tomorrow morning. Agree with GI consultation as the patient will likely need ongoing outpatient evaluation by Gastroenterology. The patient has no further requirements for inpatient Pulmonary critical care opinion, but if he develops increasing encephalopathy, please give me a phone call. 70 minutes have been devoted to this patient in various activities. I personally reviewed all imaging studies and laboratory data noted within this document. For greater than fifty percent of this time, I was interacting with the patient at the bedside or coordinating care with the care team. For the remainder of the time I was immediately available to the patient in the hospital unit. MILO
--- NOTE | 2018-01-15 01:55 | CON ---
DATE OF CONSULTAITON: 01/14/2018 REASON FOR CONSULTATION: Acute hepatitis. HISTORY OF PRESENT ILLNESS: Mr. Jenkins is a 27-year-old man who was admitted to the hospital yesterday for the first time secondary to lip laceration. Apparently, he was seen in Urgent Care, he was ling sferred to the emergency room for more complex suturing. Here, he was noted to be jaundiced, tremulo us and tachycardic. It is felt that he maybe in withdrawals and he had alcoholic hepatitis. He repo rts his last drink was about 3 days ago. He usually drinks 1.75 liter bottles of codey a week and d oing this for some time. He has not had any DTs in the past he states. He does get shaky and jitter y if he has not drink though for a day or so. Probably, this has been going on for several years. Amari vizcaino denies any abdominal pain at this time. The patient's mother is in the room as well. I know Mr. Beverley howard as we previously had worked together. His mother feels that he has not been himself for several years now. He has been treated intermittently for anxiety with benzodiazepines. For the last week, he has not been eating. He has been jaundiced for a week by her report. He denies fever or chills, vomiting, melena, hematochezia or hematemesis. PAST MEDICAL HISTORY: Anxiety disorder. ALLERGIES: None known. PAST SURGICAL HISTORY: None. MEDICATIONS: Now, he is on N-Acetylcysteine, electrolyte replacement protocol, folic acid, multivita min, thiamine, prednisone 40 mg daily. HOME MEDICATIONS: Sertraline, and alprazolam, states he takes neither regularly. REVIEW OF SYSTEMS: Patient denies hearing voices. He denies having withdrawals in the past. He den ies any chest pain, shortness of breath or fever. PHYSICAL EXAMINATION: VITAL SIGNS: T-max 99, 97 now, pulse 116, respirations 18, blood pressure 136/77. GENERAL: Patient is grossly icteric. He has got laceration of the lip, which has been sutured. NECK: Supple without adenopathy. HEART: Has sinus tachycardia. LUNGS: Clear. ABDOMEN: Soft with fullness in the upper abdomen. No shifting dullness or fluid wave. EXTREMITIES: No clubbing, cyanosis, edema. There is palmar erythema and spider angioma in his chest . GENERAL: He is mildly restless, but he is alert and oriented to person, place, and time. LABORATORY DATA: White count 8.2, hemoglobin 10.9, platelet count 84,000. INR 1.7. Sodium 133, pota ssium 3.1, BUN and creatinine are 6 and 0.6, glucose 115, magnesium 1.3, bilirubin 10.3, AST 149, lucien n from 203 yesterday, ALT is 54 down from 66, alkaline phosphatase is 89, protein is 7.2, albumin is 2.8, B12 was 1545. Lipase is 150 yesterday. Ammonia was 55. Troponins were negative. Hepatitis A, B, and C are negative. Plasma alcohol was less than 10 on admission on 01/13/2018 at 1750. ASSESSMENT: 1. Alcoholic hepatitis. I am not sure that the is going to help, but it is not going to hurt anything, the same with the steroids. Recent studies indicate the steroids probably are not helpful no matter what the discriminant function is. The only reliable treatment that seems to improve outco me is good nutrition with high protein diet. He is eating tacos now. 2. Continue multivitamin, thiamine, and folate. 3. The patient needs probably a withdrawal protocol. He is tachycardic, and he probably has low gra de withdrawal at this time. We will continue to follow along with you during his hospitalization.
[2018-01-15 04:53] LABS: INR-International Normal Ratio 1.8; PTT 54.1 SEC (22.9-36.1); Prothrombin Time 21.4 SEC (12.0-14.7)
[2018-01-15 05:16] LABS: ALT (SGPT) 49 U/L (8-55); AST (SGOT) 117 U/L (5-34); Albumin 2.7 g/dL (3.5-5.0); Alkaline Phosphatase 105 U/L (40-150); Anion Gap 9 mmol/L (10-20); BUN (Urea Nitrogen) 6 mg/dL (8.9-20.6); Bilirubin, Total 9.6 mg/dL (0.2-1.2); Calc. Creatinine Clearance 253 mL/min (70-130); Calcium 8.6 mg/dL (7.8-10.44); Carbon Dioxide 22 mmol/L (22-29); Chloride 105 mmol/L (98-107); Estimated GFR-MDRD Greater than 90; Globulin 4.2 g/dL (2.4-3.5); Glucose 136 mg/dL (70-105); Magnesium 2.1 mg/dL (1.6-2.6); Potassium 4.2 mmol/L (3.5-5.1); Protein, Total 6.9 g/dL (6.0-8.3); Sodium 132 mmol/L (136-145)
[2018-01-15] MEDS: Lorazepam 1 MG TAB PO SCH ×3 (05:34→22:03)
[2018-01-15 05:35] LABS: #Monocytes 0.8 thou/uL (0.11-0.59); #Neutrophils 7.3 thou/uL (1.40-6.50); %Basophils 0.1 % (0.0-1.0); %Eosinophils 0.1 % (0.0-10.0); %Lymphocytes 10.5 % (21.0-51.0); %Monocytes 8.2 % (0.0-10.0); Hemoglobin 10.4 g/dL (14.0-18.0); Mean Corpuscular HGB CONC 33.8 g/dL (32.0-36.0); Mean Corpuscular Hemoglobin 36.8 pg (27.0-31.0); Mean Platelet Volume 9.6 fL (7.4-10.4); Platelet Count 97 thou/uL (130-400); RBC Distribution Width 15.7 % (11.5-14.5); Red Blood Cell (RBC) Count 2.82 mill/uL (4.70-6.10); White Blood Cell (WBC) Count 9.1 thou/uL (4.8-10.8)
--- NOTE | 2018-01-15 06:19 | PDOC.FM ---
- Subjective Subjective: Patient is feeling better this morning. Denies any sx of withdrawal at this time. Mom is in the room and reports he is doing better. Overnight, bandage on face came off and wound was bleeding. This morning, there is no bleeding from wound site. Patient is tolerating diet well and has no complaints. - Objective MAR Reviewed: Yes Vital Signs & Weight: Vital Signs (12 hours) Temp Pulse Resp BP BP Pulse Ox 01/15/18 04:29 98.1 F 103 H 18 99/55 L 93 L 01/15/18 04:18 99/55 L 01/15/18 00:03 124/74 01/14/18 23:42 98.1 F 105 H 18 124/74 96 01/14/18 19:30 97.9 F 117 H 20 138/89 96 01/14/18 19:25 97.9 F 117 H 20 138/89 96 Weight Weight 95.056 kg I&O: 01/13/18 01/14/18 01/15/18 06:59 06:59 06:59 Intake Total 2310 4469.6 Output Total 450 Balance 1860 4469.6 Result Diagrams: 01/15/18 03:51 01/15/18 03:51 <Dory Aguilar - Last Filed: 01/15/18 10:46> - Objective Vital Signs & Weight: Vital Signs (12 hours) Temp Pulse Resp BP BP Pulse Ox 01/15/18 08:00 98.4 F 113 H 20 97 01/15/18 07:10 98.4 F 113 H 20 123/74 96 01/15/18 04:29 98.1 F 103 H 18 99/55 L 93 L 01/15/18 04:18 99/55 L 01/15/18 00:03 124/74 01/14/18 23:42 98.1 F 105 H 18 124/74 96 Weight Weight 95.056 kg I&O: 01/14/18 01/15/18 01/16/18 06:59 06:59 06:59 Intake Total 2310 4469.6 360 Output Total 450 Balance 1860 4469.6 360 Result Diagrams: 01/15/18 03:51 01/15/18 03:51 <Kirill Bennett - Last Filed: 01/15/18 11:20> Phys Exam - Physical Examination Constitutional: NAD HEENT: PERRLA, moist MMs scleral icterus Respiratory: no wheezing, no rales, clear to auscultation bilateral Cardiovascular: RRR, no significant murmur Gastrointestinal: soft, non-tender, no distention, positive bowel sounds Musculoskeletal: no edema mild tremulousness Neurological: moves all 4 limbs Psychiatric: normal affect, A&O x 3 <Dory Aguilar - Last Filed: 01/15/18 10:46> Dx/Plan (1) Acute alcoholic hepatitis Code(s): K70.10 - ALCOHOLIC HEPATITIS WITHOUT ASCITES Status: Acute (2) Coagulopathy Status: Acute (3) Hyperbilirubinemia Code(s): E80.6 - OTHER DISORDERS OF BILIRUBIN METABOLISM Status: Acute (4) Transaminitis Code(s): R74.0 - NONSPEC ELEV OF LEVELS OF TRANSAMNS & LACTIC ACID DEHYDRGNSE Status: Acute (5) UTI (urinary tract infection) Status: Acute (6) Alcohol dependence Code(s): F10.20 - ALCOHOL DEPENDENCE, UNCOMPLICATED Status: Chronic QualifierTitle: Substance use status: in withdrawal Complication of substance-induced condition: uncomplicated Qualified Code(s): F10.230 - Alcohol dependence with withdrawal, uncomplicated (7) Macrocytic anemia Code(s): D53.9 - NUTRITIONAL ANEMIA, UNSPECIFIED Status: Chronic (8) Polysubstance abuse Code(s): F19.10 - OTHER PSYCHOACTIVE SUBSTANCE ABUSE, UNCOMPLICATED Status: Chronic (9) Thrombocytopenia Code(s): D69.6 - THROMBOCYTOPENIA, UNSPECIFIED Status: Chronic - Plan Plan: Alcohol withdrawal with concern for possible DTs -Patient with significant alcohol hx, on day 5 of abstaining from alcohol intake , initial CIWA 13 -Continue ASE protocol with scheduled Ativan PO q8h, last ASE 3,5 -Patient vs improving, no fevers, tachycardia improving Elevated LFTs likely secondary to alcoholic hepatitis -Discriminant function score of 40 initally and 46 today. Patient on steroids and completed 24h NAC. MELD-Na score of 25. AST/ALT ratio favors alcohol as cause but with elevated direct bilirubin, consider other obstructive causes, RUQ to evaluate. -oral thiamine, folate, and multivitamin. -IVF and protonix -LFTs downtrending -Coags slightly uptrending, repeat tomorrow -RUQ US shows dilated gallblader with sludge, possible mild ascites, and abnormal appearing liver (cirrhosis vs steatosis) -Hepatitis panel, HIV, RPR wnl -GI following, appreciate recs UTI -Urine culture pending -Continue ceftriaxone Conjugated hyperbilirubinemia likely secondary to #2 -Per above Coagulopathy with elevated INR secondary to #2 -Coags continue to worsen Mild thrombocytopenia secondary to #2 Macrocytic anemia secondary to #2 -Continue to monitor with IVF resuscitation. Patients tachycardia likely explained by #1. -B12 and RBC folate Hypomagnesemia -Continues to be low, replace Hypokalemia -replace and recheck tomorrow Possible polysubstance abuse -counseling center director cessation -CM for resources for rehab PPx -Protonix and SCDs Dispo: Continue following labs. Likely d/c once acute hepatitis resolved. Will need outpatient GI followup. <Dory Aguilar - Last Filed: 01/15/18 10:46> Attending Addendum - Attending Addendum Date/Time: 01/15/18 1119 I personally evaluated the patient and discussed the management with Dr. Aguilar. I agree with the History, Examination, Assessment and Plan documented above with any addition or exceptions noted below. Patient denies complaints. Labs overall stable. Has completed NAC therapy, continues on steroids. GI on board. U/S shows steatosis versus cirrhosis. He has been counselled on his alcohol and need for abstinence. No withdrawal symptoms at this time. Possible discharge tomorrow if doing well and no further GI recs. High protein diet. <Kirill Bennett - Last Filed: 01/15/18 11:20>
[2018-01-15] MEDS: Folic Acid 1 MG TAB PO SCH (07:57)
[2018-01-15] MEDS: predniSONE 20 MG TAB PO SCH (07:57)
[2018-01-15] MEDS: Multivitamin W/ Minerals 1 TAB PO SCH (07:57)
[2018-01-15] MEDS: Magnesium Oxide 400 MG TAB PO SCH (07:58)
[2018-01-15] MEDS: Sodium Chloride 0.9% 1,000 ML IV SCH (21:57)
[2018-01-15] MEDS: cefTRIAXone\\ROCEPHIN 1 GM, Syringe 0.4 ML in Sterile Water 9.6 ML SLOW IVP SCH (21:57)
--- NOTE | 2018-01-15 22:31 | PRG ---
DATE OF SERVICE: 01/15/2018 SUBJECTIVE: Mr. Jenkins is up walking around in the room. He feels better. He is going to order some food for lunch. PHYSICAL EXAMINATION: VITAL SIGNS: Temperature is 97, pulse down to about 105 yesterday evening after his Valium, but it i s back up to 117 today, temperature is 97, blood pressure 106/60. HEENT: Mildly icteric. LUNGS: Clear. ABDOMEN: Protuberant. HEART: Sinus tachycardia. EXTREMITIES: Reveal no edema. LABORATORY STUDIES: White count is 9, hemoglobin 10.4, platelet count is 97,000. INR is 1.8. Sodiu m 132, potassium 4.2, BUN and creatinine are 6 and 0.6. Glucose is 136, calcium is 8.6, magnesium is 2.1, bilirubin is down to 9.6, AST and ALT are 117 and 49, albumin is 2.7, B12 is 145. ASSESSMENT: 1. Alcoholic hepatitis, improving. 2. Fall with laceration in the nose and sutured. 3. Withdrawal from alcohol and methamphetamine. It is unclear if his tachycardia is related to this . He did come in on the , so that should be winding up. I would recommend he would be treated m ore aggressively with withdrawal as he was withdrawing from two substances. 4. Tachycardia. He notes this has been not something new. It has been present in the past. It is unclear how this has been evaluated. It would be reasonable to at least check a TSH and it would be reasonable, if that is normal and has tachycardia has not resolved as his DTs resolved, to evaluate f or other possible causes of tachycardia including pheochromocytoma. He probably has underlying anxie ty disorder, but that easily does not itself cause tachycardia.
[2018-01-16] MEDS: Sodium Chloride 0.9% 1,000 ML IV SCH (04:55)
[2018-01-16] MEDS: Lorazepam 1 MG TAB PO SCH (05:00)
[2018-01-16 05:07] LABS: INR-International Normal Ratio 1.6; PTT 48.5 SEC (22.9-36.1); Prothrombin Time 19.8 SEC (12.0-14.7)
[2018-01-16 05:13] LABS: #Basophils 0.1 thou/uL (0.0-0.2); #Eosinphils 0.1 thou/uL (0.0-0.7); #Lymphocytes 1.7 thou/uL (1.20-3.40); #Monocytes 1.2 thou/uL (0.11-0.59); #Neutrophils 8.1 thou/uL (1.40-6.50); %Basophils 0.6 % (0.0-1.0); %Eosinophils 0.5 % (0.0-10.0); %Monocytes 10.6 % (0.0-10.0); %Neutrophils 73.3 % (42.0-75.0); Hemoglobin 10.8 g/dL (14.0-18.0); Mean Corpuscular HGB CONC 33.3 g/dL (32.0-36.0); Mean Corpuscular Hemoglobin 35.9 pg (27.0-31.0); Mean Platelet Volume 8.7 fL (7.4-10.4); Platelet Count 128 thou/uL (130-400); Red Blood Cell (RBC) Count 3.02 mill/uL (4.70-6.10); White Blood Cell (WBC) Count 11.1 thou/uL (4.8-10.8)
[2018-01-16 05:30] LABS: ALT (SGPT) 50 U/L (8-55); AST (SGOT) 101 U/L (5-34); Albumin 2.7 g/dL (3.5-5.0); Alkaline Phosphatase 117 U/L (40-150); Anion Gap 10 mmol/L (10-20); BUN (Urea Nitrogen) 8 mg/dL (8.9-20.6); Bilirubin, Total 8.3 mg/dL (0.2-1.2); Calc. Creatinine Clearance 257 mL/min (70-130); Calcium 8.6 mg/dL (7.8-10.44); Carbon Dioxide 22 mmol/L (22-29); Chloride 104 mmol/L (98-107); Estimated GFR-MDRD Greater than 90; Globulin 4.4 g/dL (2.4-3.5); Glucose 109 mg/dL (70-105); Magnesium 1.6 mg/dL (1.6-2.6); Potassium 4.3 mmol/L (3.5-5.1); Protein, Total 7.1 g/dL (6.0-8.3); Sodium 132 mmol/L (136-145)
[2018-01-16] MEDS: Multivitamin W/ Minerals 1 TAB PO SCH (08:14)
[2018-01-16] MEDS: predniSONE 20 MG TAB PO SCH (08:14)
[2018-01-16] MEDS: Magnesium Oxide 400 MG TAB PO SCH (08:14)
[2018-01-16] MEDS: Folic Acid 1 MG TAB PO SCH (08:14)
--- NOTE | 2018-01-16 09:22 | PDOC.FM ---
- Subjective Subjective: This morning patient states he slept well overnight. Denies headache, nausea, vomiting, tremor, or hallucinations. States he has had time to think about his drinking problem. Will pursue AA, does not think he has the finances to afford outpatient rehab. States he is going to try to attend AA and fill his time with more productive activities. - Objective Vital Signs & Weight: Vital Signs (12 hours) Temp Pulse Resp BP BP Pulse Ox 01/16/18 04:47 97.6 F 93 18 118/70 96 01/16/18 04:26 118/70 01/16/18 00:00 97.8 F 99 18 101/63 101/63 95 Weight Weight 95.056 kg I&O: 01/15/18 01/16/18 01/17/18 06:59 06:59 06:59 Intake Total 4469.6 2273 Balance 4469.6 2273 Result Diagrams: 01/16/18 04:26 01/16/18 04:26 <Tony Damon - Last Filed: 01/16/18 09:20> - Objective Vital Signs & Weight: Vital Signs (12 hours) Temp Pulse Resp BP BP Pulse Ox 01/16/18 12:00 119/70 01/16/18 11:34 97.3 F L 120 H 20 119/70 97 01/16/18 08:00 97.6 F 93 18 118/70 01/16/18 04:47 97.6 F 93 18 118/70 96 01/16/18 04:26 118/70 Weight Weight 95.056 kg I&O: 01/15/18 01/16/18 01/17/18 06:59 06:59 06:59 Intake Total 4469.6 2273 Balance 4469.6 2273 Result Diagrams: 01/16/18 04:26 01/16/18 04:26 <Trevin Hutchinson - Last Filed: 01/16/18 15:27> Phys Exam - Physical Examination HEENT: PERRLA, moist MMs Neck: no nodes, full ROM Respiratory: no wheezing, clear to auscultation bilateral Cardiovascular: RRR, no significant murmur Gastrointestinal: soft, non-tender, no distention, positive bowel sounds Musculoskeletal: no edema, pulses present Neurological: non-focal, moves all 4 limbs Lymphatic: no nodes Skin: no rash, cap refill <2 seconds <Tony Damon - Last Filed: 01/16/18 09:20> Dx/Plan - Plan Plan: Alcohol withdrawal with concern for possible DTs -Patient with significant alcohol hx, on day 5 of abstaining from alcohol intake , initial CIWA 13 -stopped ativan this AM, last ASE scores 3, 2, 4, 3 Elevated LFTs likely secondary to alcoholic hepatitis -Discriminant function score of 40 initally and 46 today. Patient on steroids and completed 24h NAC. MELD-Na score of 25. AST/ALT ratio favors alcohol as cause but with elevated direct bilirubin, consider other obstructive causes, RUQ to evaluate. -oral thiamine, folate, and multivitamin. -IVF and protonix -RUQ US shows dilated gallblader with sludge, possible mild ascites, and abnormal appearing liver (cirrhosis vs steatosis) -Hepatitis panel, HIV, RPR wnl -GI following, appreciate recs - Patient receieved NAC and steroids Tachycardia - TSH WNL - tachycardia resolved this AM - follow-up, consider workup for pheochromocytoma - patient denies palpitations UTI - treated with ceftriaxone - Ucx negative Conjugated hyperbilirubinemia likely secondary to #2 -Per above Coagulopathy with elevated INR secondary to #2 -Coags continue to worsen Mild thrombocytopenia secondary to #2 Macrocytic anemia secondary to #2 -Continue to monitor with IVF resuscitation. -B12 and RBC folate Hypomagnesemia -trend Hypokalemia -4.3 today Possible polysubstance abuse -genetic counselor cessation -CM for resources for rehab PPx -Protonix and SCDs Dispo: plan for D/c today <Tony Damon - Last Filed: 01/16/18 09:20> Attending Addendum - Attending Addendum Date/Time: 01/16/18 8756 I personally evaluated the patient and discussed the management with Dr. Damon. I agree with the History, Examination, Assessment and Plan documented above with any addition or exceptions noted below. <Trevin Hutchinson - Last Filed: 01/16/18 15:27>
[2018-01-16 11:36] VITALS: BP 119/70; TEMP 97.3
--- NOTE | 2018-01-16 11:48 | PRG ---
DATE OF SERVICE: 01/16/2018 HISTORY OF PRESENT ILLNESS: Mr. Jenkins states he feels better. He denies suicidal ideation. He state s he is going to stop drinking. He denies having ever used methamphetamine. Overnight, his heart ra te has come down. MEDICATIONS: Thiamine, multivitamin, folate, prednisone and Rocephin. PHYSICAL EXAMINATION: VITAL SIGNS: Temperature 97.6, pulse 93, blood pressure 118/70. GENERAL: He is icteric. He has no asterixis. He is not shaky. LUNGS: Clear. HEART: Regular rate and rhythm without clicks or murmurs. NEURO: He is oriented to person, place, and time. LABORATORY STUDIES: INR is 1.6. Sodium 132, potassium 4.3, BUN and creatinine are 8 and 0.59, bilir ubin has come down to 8.3, AST and ALT have come down to 101 and 50. Albumin is 2.7, white count 11. 1, hemoglobin 10.8, platelet count 128. ASSESSMENT: Acute alcoholic hepatitis, resolving hepatitis A, B, and C, HIV negative. It is unclear how much underlying permanent damage Mr. Jenkins is going to have done. He was drinking quite heavily for several years. I explained to him the importance of abstinence. He was given information about AA and I have encouraged him to consider that. From a medical standpoint, he needs a multivitamin, t hiamine, and folate. I would rapidly taper his prednisone over the next 3 weeks. He can follow up w maisha desai in a week for LFTs. I have got his office number and will call him and have him come in for r epeat liver function tests in the next week or so. I encouraged him to follow up with his psychiatri st with regards to anxiety issues. I think he probably can go home today if there are no other savage es. It seem that his tachycardia has resolved, which was likely a part of alcohol withdrawal.
[2018-01-16 16:12] LABS: Folate,Hemolysate 237.6 ng/mL (Not Estab.); Hematocrit 29.6 % (37.5-51.0); RBC Folate Test Component 803 ng/mL (>498)
--- NOTE | 2018-01-17 11:34 | DIS-2 ---
DATE OF ADMISSION: 01/13/2018 DATE OF DISCHARGE: 01/16/2018 RESIDENT: Dr. Tony Damon ADMITTING ATTENDING: Dr. Kirill Bennett DISCHARGE ATTENDING: Dr. Trevin Hutchinson CONSULTATIONS: Gastroenterology and Pulmonology. PROCEDURES: None. ADMISSION DIAGNOSIS: Acute alcoholic hepatitis. DISCHARGE DIAGNOSIS: Acute alcoholic hepatitis, alcohol withdrawal. HOSPITAL COURSE: A 27-year-old male with a history of alcoholism, multidrug abuse, depression, anxie ty who presented to Urgent Care complaining of a laceration in his right upper lip that would not sto p bleeding at the Urgent Care. The laceration was repair and sutured, but would not stop bleeding. It was noted at that time that the patient had significant scleral icterus and he was sent to the ED. In the ED, he was found to have elevation of AST, ALT, total bilirubin, and PT/INR. Due to his con cern for acute alcoholic hepatitis the patient was given steroids, a banana bag and acetylcysteine. The patient had been drinking heavily for approximately 10 years. He stated that he usually drank 3- 4 750 mL bottles of liquor a week. He stated that his last drink was 3 days before presenting to the ED. During the course of his hospitalization, the patient was found to have alcohol withdrawal and was tr eated appropriately with Ativan and he was monitored throughout the stay. His elevated LFTs were att ributed to alcoholic hepatitis. He received supplements of thiamine, folate, and multivitamin. Hepa titis, HIV, RPR were within normal limits. The patient was found to have a UTI and was treated with ceftriaxone. Hypomagnesemia was replaced. Hypokalemia was replaced. The patient was counseled on c essation. The patient had periods of tachycardia throughout the stay and his TSH was evaluated and f ound to be within normal limits. The tachycardia had resolved upon discharge. I recommended to cons ider workup of pheochromocytoma if he has issues with tachycardia in the future. The patient is to follow up with Dr. Rojas in GI Clinic as well as with PCP at [facility]. He should follow up at [facility] within 1 week to follow up on alcohol cessation. He states he is going to attend AA meetings and try to get more involved in the community including with music. He should follow up wi th Dr. Rojas for repeat LFTs in 1 week and in the clinic for an office visit in 3 weeks. Acute alco holic hepatitis. DISCHARGE MEDICATIONS: Folic acid 1 mg daily, multivitamin, prednisone 10 mg for 7 days, then predni sone 5 mg for 7 days, thiamine 100 mg daily. DISPOSITION: Stable. DISCHARGE INSTRUCTIONS: 1. Location: Home. 2. Diet: Regular. 3. Activity: Regular.
--- NOTE | 2018-01-21 15:13 | EKG ---
Test Reason : LAC TO FACE Blood Pressure : / mmHG Vent. Rate : 121 BPM Atrial Rate : 121 BPM P-R Int : 168 ms QRS Dur : 092 ms QT Int : 314 ms P-R-T Axes : 036 001 012 degrees QTc Int : 445 ms Sinus tachycardia Moderate voltage criteria for LVH, may be normal variant Cannot rule out Septal infarct , age undetermined Abnormal ECG Confirmed by KALEIGH ENCARNACION ([id number]), newspaper copy editor LALITO TAVAREZ ([id number]) on 01/21/2018 3:12:43 PM Referred By: ISAURA ENCARNACION Confirmed By:KALEIGH ENCARNACION
== END 2018-01-16 14:37 | disposition home or self-care (01) | DRG 433 ==
LOC: ERS 16:18 → IMCU/EMU 20:28 → T4-B 01-14 12:41
PROVIDERS: ADMIT Student in an Organized Health Care Education/Training Program; ATTEND Student in an Organized Health Care Education/Training Program
DX: K70.10 Alcoholic hepatitis without ascites (principal); D68.8 Other specified coagulation defects; D69.59 Other secondary thrombocytopenia; F10.239 Alcohol dependence with withdrawal, unspecified; N39.0 Urinary tract infection, site not specified; F15.93 Other stimulant use, unspecified with withdrawal; F12.10 Cannabis abuse, uncomplicated; F32.9 Major depressive disorder, single episode, unspecified; F41.9 Anxiety disorder, unspecified; E83.42 Hypomagnesemia; E87.6 Hypokalemia; Z79.899 Other long term (current) drug therapy
CPT/HCPCS: 36415; 76705; 80053; 80074; 80306; 80307; 81003; 81015; 82105; 82140; 82248; 82553; 82607; 82747; 83690; 83735; 84443; 84484; 85025; 85610; 85730; 86780; 86850; 86900; 86901; 87086; 87389; 93005; 96365; 96366; 96368; 96375; A4216; J0132; J0696; J2001; J2060; J3411; J3475; J7042; J7050; J7070; J7506

== ENCOUNTER 2020-02-20 14:12 | Emergency (ER) | payer SELFPAY ==
[2020-02-20] MEDS ORDERED: Lorazepam 2 MG/ML VIAL ONE (15:36)
[2020-02-20 16:10] LABS: INR-International Normal Ratio 2.1; Prothrombin Time 23.4 SEC (12.0-14.7)
[2020-02-20 16:11] LABS: PTT 47.9 SEC (22.9-36.1)
[2020-02-20 16:14] LABS: #Basophils 0.1 thou/uL (0.0-0.2); #Lymphocytes 1.5 thou/uL (1.20-3.40); #Monocytes 0.7 thou/uL (0.11-0.59); #Neutrophils 3.4 thou/uL (1.40-6.50); %Basophils 1.1 % (0.0-1.0); %Eosinophils 0.5 % (0.0-10.0); %Monocytes 11.7 % (0.0-10.0); %Neutrophils 60.8 % (42.0-75.0); Hemoglobin 10.2 g/dL (14.0-18.0); Mean Corpuscular HGB CONC 33.5 g/dL (32.0-36.0); Mean Corpuscular Hemoglobin 34.6 pg (27.0-31.0); Mean Platelet Volume 9.2 fL (7.4-10.4); Platelet Count 42 thou/uL (130-400); RBC Distribution Width 13.9 % (11.5-14.5); Red Blood Cell (RBC) Count 2.94 mill/uL (4.70-6.10); White Blood Cell (WBC) Count 5.6 thou/uL (4.8-10.8)
[2020-02-20 16:27] LABS: ALT (SGPT) 37 U/L (8-55); AST (SGOT) 73 U/L (5-34); Albumin 2.3 g/dL (3.5-5.0); Alkaline Phosphatase 129 U/L (40-110); Anion Gap 8 mmol/L (10-20); BUN (Urea Nitrogen) 4 mg/dL (8.9-20.6); Bilirubin, Total 6.8 mg/dL (0.2-1.2); Calc. Creatinine Clearance 0 mL/min (70-130); Calcium 7.7 mg/dL (7.8-10.44); Carbon Dioxide 29 mmol/L (22-29); Chloride 108 mmol/L (98-107); Estimated GFR-MDRD Greater than 90; Globulin 3.8 g/dL (2.4-3.5); Glucose 109 mg/dL (70-105); Magnesium 1.3 mg/dL (1.6-2.6); Potassium 3.4 mmol/L (3.5-5.1); Protein, Total 6.1 g/dL (6.0-8.3); Sodium 142 mmol/L (136-145)
[2020-02-20 16:28] LABS: Burr Cells SLIGHT = 2-5 cells (100X) (0-1/hpf); MDiff Complete? YES; Macrocytosis SLIGHT = 6-15 cells (100X) (0-5/hpf); Platelet Morphology Comment Appears Decreased; Polychromasia SLIGHT = 2-3 cells (100X) (0-2/hpf); Tear Drops SLIGHT = 2-5 cells (100X) (0-1/hpf)
[2020-02-20] MEDS ORDERED: Magnesium 2 GM/50 ML BAG (IN WATER) ONE (18:07)
--- NOTE | 2020-02-22 13:10 | EKG ---
Test Reason : Blood Pressure : / mmHG Vent. Rate : 123 BPM Atrial Rate : 123 BPM P-R Int : 154 ms QRS Dur : 094 ms QT Int : 328 ms P-R-T Axes : 042 -02 036 degrees QTc Int : 469 ms Sinus tachycardia Moderate voltage criteria for LVH, may be normal variant Borderline ECG Confirmed by JULIUS YU, MAGGIE ([id number]), photographic editor LALITO TAVAREZ ([id number]) on 02/22/2020 1:10:18 PM Referred By: Confirmed By:MAGGIE MADRID MD
== END 2020-02-20 19:14 | disposition home or self-care (01) ==
LOC: ERS 14:12
DX: K70.10 Alcoholic hepatitis without ascites (principal); E83.42 Hypomagnesemia; R00.0 Tachycardia, unspecified; F10.10 Alcohol abuse, uncomplicated; F41.9 Anxiety disorder, unspecified
CPT/HCPCS: 36415; 80053; 80307; 83605; 83735; 85025; 85610; 85730; 93005; 96361; 96365; 96375; J2060; J3475

== ENCOUNTER 2020-03-07 10:08 | Observation (INO) | payer OTHER, SELFPAY ==
[2020-03-07] MEDS ORDERED: Lorazepam 2 MG/ML VIAL ONE (10:36)
[2020-03-07 10:57] LABS: Hemoglobin 12.1 g/dL (14.0-18.0); Mean Corpuscular HGB CONC 33.1 g/dL (32.0-36.0); Mean Platelet Volume 10.6 fL (7.4-10.4); Platelet Count 55 thou/uL (130-400); RBC Distribution Width 16.1 % (11.5-14.5); Red Blood Cell (RBC) Count 3.44 mill/uL (4.70-6.10); White Blood Cell (WBC) Count 9.4 thou/uL (4.8-10.8)
[2020-03-07 11:01] LABS: Bacteria/HPF None Seen HPF (None Seen); Bilirubin Negative (Negative); Blood, Urine 1+ (Negative); Clarity Clear (Clear); Glucose, Urine (Dipstick) Normal (Negative); Leukocyte Negative Leu/uL (Negative); Nitrite Negative (Negative); Protein, Urine (Dipstick) Negative (Neg-Trace); RBC/HPF None Seen HPF (0-3); Squamous Epithelial None Seen HPF (0-3); Urobilinogen Normal mg/dL (Less than 2); WBC/HPF None Seen HPF (0-3)
[2020-03-07 11:08] LABS: ALT (SGPT) 60 U/L (8-55); AST (SGOT) 104 U/L (5-34); Alkaline Phosphatase 207 U/L (40-110); Anion Gap 17 mmol/L (10-20); BUN (Urea Nitrogen) 8 mg/dL (8.9-20.6); Bilirubin, Total 9.4 mg/dL (0.2-1.2); Calc. Creatinine Clearance 0 mL/min (70-130); Calcium 8.3 mg/dL (7.8-10.44); Carbon Dioxide 23 mmol/L (22-29); Chloride 100 mmol/L (98-107); Estimated GFR-MDRD Greater than 90; Globulin 4.3 g/dL (2.4-3.5); Glucose 112 mg/dL (70-105); Potassium 3.8 mmol/L (3.5-5.1); Protein, Total 7.3 g/dL (6.0-8.3); Sodium 136 mmol/L (136-145)
[2020-03-07 11:16] LABS: INR-International Normal Ratio 1.9; PTT 42.3 SEC (22.9-36.1); Prothrombin Time 21.5 SEC (12.0-14.7)
[2020-03-07 11:36] LABS: #Lymphocytes 1.1 thou/uL (1.20-3.40); #Monocytes 0.7 thou/uL (0.11-0.59); #Neutrophils 7.5 thou/uL (1.40-6.50); %Basophils 0.4 % (0.0-1.0); %Eosinophils 0.2 % (0.0-10.0); %Lymphocytes 11.6 % (21.0-51.0); %Monocytes 7.7 % (0.0-10.0); %Neutrophils 80.1 % (42.0-75.0); MDiff Complete? YES; Macrocytosis SLIGHT = 6-15 cells (100X) (0-5/hpf); Platelet Morphology Comment Appears Decreased; Target Cells SLIGHT = 2-5 cells (100X) (0-1/hpf)
[2020-03-07] MEDS ORDERED: Multivitamins, Adult 10 ML, Thiamine HCl 100 MG, Folic Acid 1 MG in Dextrose 5 %-0.45 %... IV SCH (11:45)
[2020-03-07 12:03] LABS: Amphetamine Not Detected (NotDetected); Barbiturates Screen Not Detected (NotDetected); Benzodiazepine Screen Detected (NotDetected); Cocaine Metabolite Screen Not Detected (NotDetected); Medtox Control Line Valid? VALID (VALID); Medtox Reader # READER 1; Methadone Not Detected (NotDetected); Methamphetamine Not Detected (NotDetected); Opiate Screen Not Detected (NotDetected); Oxycodone Screen Not Detected (NotDetected); Phencyclidine (PCP) Not Detected (NotDetected); THC/Cannabinoid Screen Not Detected (NotDetected); Tricyclic Screen Not Detected (NotDetected)
--- NOTE | 2020-03-07 12:22 | RAD ---
SINGLE VIEW CHEST: Date: 03/07/2020 COMPARISON: 03/23/07. HISTORY: Alcohol detoxification with shaking and edema and bilateral lower extremities. FINDINGS: Single view of the chest shows a normal sized cardiomediastinal silhouette. There is no evidence of c onsolidation, mass, or pleural effusion. The bones are unremarkable. IMPRESSION: No evidence of acute cardiopulmonary disease. POS: [facility]
--- NOTE | 2020-03-07 14:10 | PDOC.FPRHP ---
- History of Present Illness Chief Complaint: Alcohol Withdrawal History of Present Illness: 29 yo male with PMH of severe alcohol abuse and alcoholic hepatitis presents to ED due to "alcohol withdrawal." Patient was recently admitted and completed an alcohol rehab stay. However, she was recently arrested for public intoxication and was released today. He notes that he used to have an extensive drinking history, but at times has intermittent relapses where he mostly consumes multiple 4 - Lokos and beers. He denies any hematemesis, black or tarry stools, or hematochezia. He notes that he is trying to change his life, but sometimes his anxiety, depression, and addiction gets the best of him. He notes that he drank at least twice in the last two weeks. Today, he began shaking, having lower extremity edema, and having an anxiety attack. Of note, he describes some changing numbness and tingling to his whole body and left side at times. He denies any focal deficits, drooping of his face, or vision changes. He reports multiple ED visits including one at [facility] in the last month as well. No other complaints. ED Course: 1L Banana Bag 1L NS Bolus 2 mg Lorazepam - Allergies/Adverse Reactions Allergies Allergy/AdvReac Type Severity Reaction Status Date / Time No Known Allergies Allergy Verified 02/01/20 22:05 - Home Medications Medication Instructions Recorded Confirmed Type Sertraline HCl 50 mg PO HS 01/13/18 01/13/18 History Folic Acid [Folvite] 1 mg PO DAILY 30 Days #30 tab 01/16/18 Rx Multivitamin W/ Minerals 1 tab PO DAILY 30 Days #30 tab 01/16/18 Rx [Theragran M] Prednisone [predniSONE 10 mg 10 mg PO ASDIR 7 Days #7 tab.ds.pk 01/16/18 Rx Dosepak] Thiamine 100 mg PO DAILY 30 Days #30 tab 01/16/18 Rx predniSONE [Prednisone] 5 mg PO DAILY 7 Days #7 tab.ds.pk 01/16/18 Rx - History PMHx: Anxiety, Depression, Cirrhosis PSHx: None FHx: Non-contributory Social: Previous alcohol abuse greater than 10 years. Allegedly quit 1 month ago , but has had intermittent relapses. Past history of polysubstance abuse. - Review of Systems General: denies: fever/chills, weight/appetite/sleep changes ENT: denies: nasal congestion, rhinorrhea Respiratory: denies: cough, shortness of breath Cardiovascular: reports: edema. denies: chest pain Gastrointestinal: denies: nausea, vomiting, diarrhea Genitourinary: reports: incontinence, polyuria (from lasix). denies: dysuria Skin: denies: rashes, lesions, jaundice Musculoskeletal: denies: pain, tenderness, stiffness Neurological: reports: numbness. denies: syncope, seizure, weakness Psychological: reports: anxiety, depression - Vital signs BP: 146/87 HR: 115 RR: 28 Tmax: 98.2 Pox: 100% on RoomAir Wt: 88.5 kg - Physical Exam Constitutional: NAD, awake, alert and oriented HEENT: normocephalic and atraumatic -HEENT: Scleral icterus Neck: trachea midline, no thyromegaly Heart: normal S1/S2, no murmurs/rubs/gallops, pulses present -Heart: Tachycardic rate, regular rhythm. 2+ pitting edema bilaterally to level of knees Lungs: CTAB, no respiratory distress, good air movement, no rales/rhonchi, no wheezing Abdomen: soft, non-tender, bowel sounds present, no masses/distention Musculoskeletal: normal structure, normal tone, ROM grossly normal Neurological: no focal deficit, CN II-XII intact -Neurological: Reported subjective sensation loss Skin: no rash/lesions, capillary refill <2 seconds Heme/Lymphatic: no unusual bruising or bleeding, no purpura, no petechia Psychiatric: normal mood and affect, intact recent and remote memory FMR H&P: Results - Labs Result Diagrams: 03/07/20 10:38 03/07/20 10:38 Lab results: WBC 9.4 thou/uL (4.8-10.8) 03/07/20 10:38 Hgb 12.1 g/dL (14.0-18.0) L 03/07/20 10:38 Hct 36.4 % (42.0-52.0) L 03/07/20 10:38 MCV 106.0 fL (78.0-98.0) H 03/07/20 10:38 Plt Count 55 thou/uL (130-400) L 03/07/20 10:38 Neutrophils % 80.1 % (42.0-75.0) H 03/07/20 10:38 Sodium 136 mmol/L (136-145) 03/07/20 10:38 Potassium 3.8 mmol/L (3.5-5.1) 03/07/20 10:38 Chloride 100 mmol/L (98-107) 03/07/20 10:38 Carbon Dioxide 23 mmol/L (22-29) 03/07/20 10:38 BUN 8 mg/dL (8.9-20.6) L 03/07/20 10:38 Creatinine 0.61 mg/dL (0.7-1.3) L 03/07/20 10:38 Glucose 112 mg/dL (70-105) H 03/07/20 10:38 Calcium 8.3 mg/dL (7.8-10.44) 03/07/20 10:38 Total Bilirubin 9.4 mg/dL (0.2-1.2) H 03/07/20 10:38 AST 104 U/L (5-34) H 03/07/20 10:38 ALT 60 U/L (8-55) H 03/07/20 10:38 Alkaline Phosphatase 207 U/L (40-110) H 03/07/20 10:38 B-Natriuretic Peptide 22.1 pg/mL (0-100) 03/07/20 10:38 Serum Total Protein 7.3 g/dL (6.0-8.3) 03/07/20 10:38 Albumin 3.0 g/dL (3.5-5.0) L 03/07/20 10:38 Urine Ketones Negative mg/dL (Negative) 03/07/20 10:38 Urine Blood 1+ (Negative) A 03/07/20 10:38 Urine Nitrite Negative (Negative) 03/07/20 10:38 Ur Leukocyte Esterase Negative Mariely/uL (Negative) 03/07/20 10:38 Urine RBC None Seen HPF (0-3) 03/07/20 10:38 Urine WBC None Seen HPF (0-3) 03/07/20 10:38 Ur Squamous Epith Cells None Seen HPF (0-3) 03/07/20 10:38 Urine Bacteria None Seen HPF (None Seen) 03/07/20 10:38 - EKG Interpretation EK lead EKG shows, sinus tachycardia, Rate (beats per minute): 120, with no ectopics, Conduction normal, ST segments normal, T waves normal, [place] normal. - Radiology Interpretation Chest x-ray Status: image reviewed by me (No evidence of acute cardiopulmonary disease) FMR H&P: A/P - Problem List (1) Acute alcoholic hepatitis Current Visit: No Status: Acute Priority: High Code(s): K70.10 - ALCOHOLIC HEPATITIS WITHOUT ASCITES (2) Alcohol withdrawal Current Visit: Yes Status: Acute Code(s): F10.239 - ALCOHOL DEPENDENCE WITH WITHDRAWAL, UNSPECIFIED (3) Coagulopathy Current Visit: No Status: Acute Priority: Medium (4) Hyperbilirubinemia Current Visit: No Status: Acute Code(s): E80.6 - OTHER DISORDERS OF BILIRUBIN METABOLISM (5) Alcohol dependence Current Visit: No Status: Chronic Priority: High Code(s): F10.20 - ALCOHOL DEPENDENCE, UNCOMPLICATED Qualifiers: Substance use status: in withdrawal Complication of substance-induced condition: uncomplicated Qualified Code(s): F10.230 - Alcohol dependence with withdrawal, uncomplicated - Plan Alcoholic Hepatitis vs Cirrhosis - Maddrey's Discriminant Function score greater than 32 - Will initiate steroid therapy - Abdominal US pending at this time - Recommend complete and total cessation from this day forward - Recommend continued close follow up as outpatient - MELD score 23 -> 19.6% 3 month mortality - Previous hepatitis testing completed and negative., would recommend repeat testing as outpatient. Alcohol withdrawal - [facility] protocol - Benzodiazepine therapy - CT scan of brain pending at this time Hyperbilirubinemia - Likely secondary to above - Ordered direct bilirubin Coagulopathy - Repeat INR ordered for AM - INR on admission 1.9 - No indication for DIC panel at this time Thrombocytopenia - Platelet on admission 55 - Recheck in AM PCP: Dr. Abreu; however has not seen in "very long time, but would like to follow up with her." CODE STATUS: FULL CODE Disposition: retirement prognosis poor. Today, Stable, will admit to medical observation for further evaluation and management with likely discharge tomorrow. Addendum - Attending - Attending Attestation Date/Time: 03/07/20 0352 I personally evaluated the patient and discussed the management with Dr. Mccullough. I agree with the History, Examination, Assessment and Plan documented above with any addition or exceptions noted below.
[2020-03-07] MEDS ORDERED: Lorazepam 2 MG/ML VIAL SLOW IVP PRN (15:45)
--- NOTE | 2020-03-07 15:46 | ULT ---
ABDOMINAL ULTRASOUND WITH DUPLEX EVALUATION: 03/07/20 INDICATION: History of abdominal pain and alcohol withdrawal. TECHNIQUE: Peters scale, color Doppler with spectral Doppler images were obtained in the abdomen. FINDINGS: There is a coase appearance to the liver. The spleen was not demonstrated. There are gallstones withi n the gallbladder. No sonographic Herring's sign is reported. Gallbladder wall measures 3.8 mm. No per icholecystic fluid is evident. Common bile duct measures 4.1 mm. Pancreas is largely obscured. The vi sualized aspects of the aorta and IVC appear within normal limits. There is hepatopetal flow seen within the main hepatic artery. There is appropriate flow within the I VC. There is appropriate antegrade flow within the aorta. There is the appearance of hepatofugal flow within the main portal vein. The hepatic veins were not well demonstrated. Splenic vein and splenic artery were not demonstrated. IMPRESSION: 1. Coarse appearance of the liver may reflect underlying chronic liver disease. 2. There is suggestion of hepatofugal flow within the main portal vein; however, the examination of this finding is slightly limited due to technique. There is poor visualization of the hepatic vei ns. There is nonvisualization of the splenic vein and splenic artery. There is appropriate hepatopeta l flow within the hepatic artery. Follow-up examination in one to two days may be helpful to re-evalu ate the hepatic vasculature by duplex exam. 3. Cholelithiasis without sonographic evidence of acute cholecystitis. 4. No free fluid is present. POS: BH
[2020-03-07 15:50] VITALS: BP 147/79; TEMP 98; BMI 33.1
[2020-03-07] MEDS ORDERED: chlordiazePOXIDE HCl 25 MG CAP PO SCH ×2 (16:00→21:00)
[2020-03-08] MEDS ORDERED: prednisoLONE 10 MG ODT TAB PO SCH (09:00)
[2020-03-08] MEDS ORDERED: Folic Acid 1 MG TAB PO SCH (09:00)
[2020-03-08] MEDS ORDERED: Cyanocobalamin (Vitamin B-12) 1,000 MCG TAB PO SCH (09:00)
[2020-03-08] MEDS ORDERED: Thiamine 100 MG TAB PO SCH (09:00)
--- NOTE | 2020-03-12 14:11 | EKG ---
Test Reason : Blood Pressure : / mmHG Vent. Rate : 120 BPM Atrial Rate : 120 BPM P-R Int : 146 ms QRS Dur : 088 ms QT Int : 328 ms P-R-T Axes : 070 005 024 degrees QTc Int : 463 ms Sinus tachycardia Minimal voltage criteria for LVH, may be normal variant Borderline ECG Confirmed by MARIA INES FIELDS DO ([id number]), slot editor LALITO TAVAREZ ([id number]) on 03/12/2020 2:10:38 PM Referred By: Confirmed By:MARIA INES FIELDS DO
== END 2020-03-07 16:29 | disposition left against medical advice (07) ==
LOC: ERS 10:08 → T4-B 13:38 → INTOOBSV 13:38
PROVIDERS: ADMIT Family Medicine; ATTEND Family Medicine
DX: F10.230 Alcohol dependence with withdrawal, uncomplicated (principal); K70.10 Alcoholic hepatitis without ascites; F41.9 Anxiety disorder, unspecified; F32.9 Major depressive disorder, single episode, unspecified; E80.6 Other disorders of bilirubin metabolism; D69.6 Thrombocytopenia, unspecified; K80.20 Calculus of gallbladder without cholecystitis without obstruction; I10 Essential (primary) hypertension; Z79.899 Other long term (current) drug therapy; Z91.5 Personal history of self-harm
CPT/HCPCS: 71045; 80053; 80306; 81003; 81015; 83880; 84484; 85025; 85610; 85730; 93005; 93975; 96361; 96365; 96366; 96375; G0378; J2060; J3411; J7042

== ENCOUNTER 2020-03-08 22:51 | Emergency (ER) | payer OTHER, SELFPAY ==
--- NOTE | 2020-03-08 23:45 | RAD ---
Exam:3 views right shoulder HISTORY: Medical clearance. COMPARISON: None FINDINGS: No fracture or dislocation. Visualized right ribs appear to be intact. IMPRESSION: No fracture or dislocation.
--- NOTE | 2020-03-08 23:46 | RAD ---
Exam: Chest one view HISTORY:Medical clearance Comparison: 03/07/2020 FINDINGS: Cardiac silhouette: Normal Aorta: Unremarkable Pulmonary vessels: Normal Costophrenic angles: Clear LUNGS: Persistently diminished lung volume. Patchy lung parenchymal prominence likely due to inadequa te lung expansion. Pneumothorax: None Osseous abnormalities: None IMPRESSION: No significant interval change.
[2020-03-09 00:08] LABS: Hemoglobin 10.8 g/dL (14.0-18.0); Mean Corpuscular HGB CONC 31.9 g/dL (32.0-36.0); Mean Corpuscular Hemoglobin 34.4 pg (27.0-31.0); RBC Distribution Width 16.2 % (11.5-14.5); Red Blood Cell (RBC) Count 3.14 mill/uL (4.70-6.10); White Blood Cell (WBC) Count 13.2 thou/uL (4.8-10.8)
[2020-03-09 00:11] LABS: #Basophils 0.1 thou/uL (0.0-0.2); #Eosinphils 0.2 thou/uL (0.0-0.7); #Lymphocytes 2.8 thou/uL (1.20-3.40); #Monocytes 1.6 thou/uL (0.11-0.59); #Neutrophils 8.5 thou/uL (1.40-6.50); %Basophils 0.8 % (0.0-1.0); %Eosinophils 1.5 % (0.0-10.0); %Lymphocytes 21.4 % (21.0-51.0); %Monocytes 11.7 % (0.0-10.0); %Neutrophils 64.5 % (42.0-75.0)
[2020-03-09 00:14] LABS: INR-International Normal Ratio 2.1; PTT 43.6 SEC (22.9-36.1)
[2020-03-09 00:18] LABS: Acetaminophen Less than 6.0 mcg/mL (10.0-30.0); Alcohol 165 mg/dL (Less than 10); Salicylate Less than 8.0 mg/dL (15.0-30.0)
[2020-03-09 00:19] LABS: ALT (SGPT) 66 U/L (8-55); AST (SGOT) 118 U/L (5-34); Albumin 2.9 g/dL (3.5-5.0); Alkaline Phosphatase 222 U/L (40-110); Anion Gap 13 mmol/L (10-20); BUN (Urea Nitrogen) 6 mg/dL (8.9-20.6); Bilirubin, Total 9.1 mg/dL (0.2-1.2); Calc. Creatinine Clearance 0 mL/min (70-130); Calcium 8.5 mg/dL (7.8-10.44); Carbon Dioxide 25 mmol/L (22-29); Chloride 107 mmol/L (98-107); Estimated GFR-MDRD Greater than 90; Globulin 3.8 g/dL (2.4-3.5); Glucose 125 mg/dL (70-105); Potassium 3.4 mmol/L (3.5-5.1); Protein, Total 6.7 g/dL (6.0-8.3); Sodium 142 mmol/L (136-145)
[2020-03-09 00:26] LABS: MDiff Complete? YES; Macrocytosis SLIGHT = 6-15 cells (100X) (0-5/hpf); Mean Platelet Volume 11.1 fL (7.4-10.4); Platelet Count 45 thou/uL (130-400); Platelet Morphology Comment Appears Decreased; Schistocytes SLIGHT = 2-5 cells (100X) (0-1/hpf)
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
== END 2020-03-09 01:34 ==
LOC: ERS 22:51
DX: F10.129 Alcohol abuse with intoxication, unspecified (principal); I10 Essential (primary) hypertension; F41.9 Anxiety disorder, unspecified; F32.9 Major depressive disorder, single episode, unspecified; K75.9 Inflammatory liver disease, unspecified; V89.2XXA Person injured in unspecified motor-vehicle accident, traffic, initial encounter
CPT/HCPCS: 36415; 71045; 71260; 74177; 80053; 80307; 85025; 85610; 85730